=== PATIENT | female | born 1965 | race African-American/Black ===

== ENCOUNTER 2020-10-18 17:14 | Inpatient (IN) ==
[2020-10-18] MEDS ORDERED: 0.9 % Sodium Chloride 500 ML IVC ONE (17:53)
[2020-10-18] MEDS ORDERED: Ondansetron 4 MG/2 ML VIAL IVP ONE (17:53)
[2020-10-18] MEDS ORDERED: Aspirin 81 MG TAB.CHEW PO ONE (17:53)
[2020-10-18] MEDS ORDERED: *HR* LORazepam 2 MG/ML VIAL IVP ONE (17:54)
[2020-10-18] MEDS ORDERED: *HR* FentaNYL (PF) 100 MCG/2 ML VIAL IVP ONE (17:54)
[2020-10-18] MEDS ORDERED: Isovue-370 500 ML BOTTLE IVP ONE (18:01)
[2020-10-18 18:28] LABS: Basophils % 0.8 %; Eosinophils # 0.1 K/mcL (0.0-0.6); Eosinophils % 1.2 %; Hematocrit 39.9 % (35.3-44.9); Hemoglobin 12.9 g/dL (11.5-15.4); Immature Granulocytes % 0.4 % (0-4); Lymphocytes # 1.4 K/mcL (0.6-4.6); Lymphocytes % 29.1 %; Mean Corpuscular HGB Conc 32.3 g/dL (31.6-35.5); Mean Corpuscular Hemoglobin 26.5 pg (28.0-33.3); Mean Corpuscular Volume 81.9 fL (83.0-100.0); Mean Platelet Volume 9.4 fL (9.4-12.4); Monocytes # 0.6 K/mcL (0.0-1.3); Monocytes % 12.8 %; Neutrophils # 2.7 K/mcL (1.6-8.9); Platelet Count 330 K/mcL (140-400); Red Blood Count 4.87 M/mcL (3.82-4.97); Segmented Neutrophils % 55.7 %; White Blood Count 4.8 K/mcL (4.3-11.1)
[2020-10-18 18:39] LABS: INR 1.3; Prothrombin Time 14.6 Seconds (9.4-12.1)
[2020-10-18 18:41] LABS: Activated Partial Thrombo Time 27.4 Seconds (26.0-36.0)
[2020-10-18 18:51] LABS: Alanine Aminotransferase 59 Units/L (7-52); Albumin/Globulin Ratio 1.4 (1.1-2.2); Alkaline Phosphatase 123 Units/L (34-104); Aspartate Amino Transferase 45 Units/L (13-39); BUN/Creatinine Ratio 17 (6-26); Bilirubin,Direct 0.1 mg/dL (0.0-0.2); Bilirubin,Indirect 0.5 mg/dL (0.0-1.0); Bilirubin,Total 0.6 mg/dL (0.3-1.0); Blood Urea Nitrogen 21 mg/dL (6-20); Calcium 9.1 mg/dL (8.6-10.3); Carbon Dioxide 20 mEq/L (23-29); Chloride 108 mEq/L (98-107); Globulin 2.9 g/dL (2.4-3.5); Glucose 111 mg/dL (70-105); Lipase 34 Units/L (11-82); Osmolality,Calculated 290 (280-300); Sodium 138 mEq/L (136-145); Total Protein 6.9 g/dL (6.4-8.9); Troponin I < 0.03 ng/mL (< 0.04); eGFR For African Americans 55 (> 60); eGFR For Non-African Americans 45 (> 60)
[2020-10-18 20:46] LABS: Bacteria,Urine Few per hpf (None-Few); Bilirubin,Urine Negative (Negative); Blood,Urine Negative (Negative); Clarity,Urine Clear (Clear); Color,Urine Light-Yellow (Yellow); Glucose,Urine (UA) Normal (Normal); Ketones,Urine Negative (Negative); Leukocyte Esterase,Urine Trace (Negative); Mucus,Urine Few per lpf (None-Few); Nitrite,Urine Negative (Negative); PH,Urine 5.5 pH Units (5.0-8.0); Protein,Urine Negative (Neg-Trace); RBC,Urine 0-3 per hpf (0-3); Squamous Epithelial Cell,Urine Few per hpf (None-Few); Urobilinogen,Urine Normal (Normal); WBC,Urine 0-3 per hpf (0-3)
[2020-10-18 21:06] LABS: Amphetamine Screen,Urine Positive ng/mL (Cutoff=1000); Barbiturate Screen,Urine Negative ng/mL (Cutoff=200); Benzodiazepines Screen,Urine Negative ng/mL (Cutoff=200); Cannabinoid Screen,Urine Negative ng/mL (Cutoff = 50); Cocaine Screen,Urine Negative ng/mL (Cutoff= 300); Opiate Screen,Urine Negative ng/mL (Cutoff=300); Phencyclidine Screen,Urine Negative ng/mL (Cutoff=25)
[2020-10-19] MEDS ORDERED: Perflutren Lipid Microsphere 1.3 ML in 0.9 % Sodium Chloride 8.7 ML IVP PRN (00:40)
[2020-10-19] MEDS ORDERED: Nitroglycerin 0.4 MG TAB.SUBL SL PRN (00:41)
[2020-10-19] MEDS ORDERED: Morphine Sulfate 2 MG/ML SYRINGE IVP PRN (00:47)
[2020-10-19] MEDS ORDERED: Naloxone 0.4 MG/ML INJ IVP PRN (00:49)
[2020-10-19] MEDS ORDERED: Dextrose Gel 15 GM/37.5 ML TUBE PO PRN ×2 (00:55)
[2020-10-19] MEDS ORDERED: D5% in Water 1,000 ML IVC PRN (00:55)
[2020-10-19] MEDS ORDERED: *HR* Dextrose 50 % in Water (Vial) 50 ML VIAL IVP PRN (00:55)
[2020-10-19] MEDS: *HR* LORazepam 2 MG/ML VIAL IVP PRN ×2 (02:41→12:02)
[2020-10-19 04:57] LABS: Hematocrit 37.9 % (35.3-44.9); Hemoglobin 12.4 g/dL (11.5-15.4); Mean Corpuscular HGB Conc 32.7 g/dL (31.6-35.5); Mean Corpuscular Volume 82.6 fL (83.0-100.0); Mean Platelet Volume 9.3 fL (9.4-12.4); Platelet Count 293 K/mcL (140-400); Red Blood Count 4.59 M/mcL (3.82-4.97); White Blood Count 5.4 K/mcL (4.3-11.1)
[2020-10-19 05:06] LABS: Estimated Average Glucose 163 mg/dl; Hemoglobin A1C 7.3 %
[2020-10-19 05:19] LABS: Calcium 8.6 mg/dL (8.6-10.3); Potassium 4.1 mEq/L (3.5-5.1)
[2020-10-19] MEDS: *HR* Heparin 5,000 UNIT/ML VIAL SQ SCH ×2 (05:22→18:42)
[2020-10-19 05:55] LABS: Hepatitis B Surface Antigen Nonreactive (Nonreactive)
[2020-10-19] MEDS ORDERED: Regadenoson 0.4 MG/5 ML SYRINGE IVP ONE (06:12)
[2020-10-19 06:24] LABS: Hepatitis C Virus Antibody Nonreactive (Nonreactive)
[2020-10-19 06:25] LABS: Hepatitis B Core IgM Nonreactive (Nonreactive)
[2020-10-19] MEDS ORDERED: Furosemide 20 MG TABLET PO SCH (09:00)
[2020-10-19] MEDS: Aspirin Enteric Coated 81 MG Tablet PO SCH (09:35)
[2020-10-19 13:21] LABS: Hepatitis A Antibody IgM Nonreactive (Nonreactive)
[2020-10-19] MEDS: Furosemide 20 MG/2 ML VIAL IVP SCH (18:42)
[2020-10-20] MEDS: *HR* Heparin 5,000 UNIT/ML VIAL SQ SCH ×2 (05:35→18:34)
[2020-10-20 06:30] LABS: Basophils % 0.8 %; Eosinophils # 0.2 K/mcL (0.0-0.6); Eosinophils % 3.1 %; Hematocrit 38.2 % (35.3-44.9); Hemoglobin 12.5 g/dL (11.5-15.4); Immature Granulocytes % 0.4 % (0-4); Lymphocytes # 1.9 K/mcL (0.6-4.6); Lymphocytes % 37.1 %; Mean Corpuscular HGB Conc 32.7 g/dL (31.6-35.5); Mean Corpuscular Hemoglobin 26.8 pg (28.0-33.3); Mean Platelet Volume 9.8 fL (9.4-12.4); Monocytes # 0.5 K/mcL (0.0-1.3); Monocytes % 10.6 %; Neutrophils # 2.5 K/mcL (1.6-8.9); Platelet Count 291 K/mcL (140-400); Red Blood Count 4.66 M/mcL (3.82-4.97); White Blood Count 5.1 K/mcL (4.3-11.1)
[2020-10-20 06:46] LABS: Albumin 3.5 g/dL (3.5-5.7); Albumin/Globulin Ratio 1.4 (1.1-2.2); Bilirubin,Total 0.4 mg/dL (0.3-1.0); Calcium 8.8 mg/dL (8.6-10.3); Globulin 2.5 g/dL (2.4-3.5); Potassium 4.3 mEq/L (3.5-5.1)
[2020-10-20] MEDS: Furosemide 20 MG/2 ML VIAL IVP SCH (11:20)
[2020-10-20] MEDS: Aspirin Enteric Coated 81 MG Tablet PO SCH (11:20)
[2020-10-21] MEDS ORDERED: *HR* LORazepam 2 MG/ML VIAL IVP ONE ×2 (03:04→21:30)
[2020-10-21] MEDS: *HR* Heparin 5,000 UNIT/ML VIAL SQ SCH ×2 (03:15→18:23)
[2020-10-21] MEDS: Nicotine 14 MG PATCH.TD24 TD SCH (03:33)
[2020-10-21 04:28] LABS: Basophils # 0.1 K/mcL (0.0-0.2); Eosinophils # 0.2 K/mcL (0.0-0.6); Eosinophils % 3.5 %; Hematocrit 41.2 % (35.3-44.9); Immature Granulocytes % 0.4 % (0-4); Lymphocytes # 1.6 K/mcL (0.6-4.6); Lymphocytes % 31.3 %; Mean Corpuscular HGB Conc 31.6 g/dL (31.6-35.5); Mean Corpuscular Hemoglobin 26.5 pg (28.0-33.3); Mean Corpuscular Volume 84.1 fL (83.0-100.0); Mean Platelet Volume 9.9 fL (9.4-12.4); Monocytes # 0.6 K/mcL (0.0-1.3); Monocytes % 12.1 %; Neutrophils # 2.6 K/mcL (1.6-8.9); Platelet Count 339 K/mcL (140-400); Segmented Neutrophils % 51.7 %; White Blood Count 5.1 K/mcL (4.3-11.1)
[2020-10-21 04:37] LABS: BUN/Creatinine Ratio 28 (6-26); Blood Urea Nitrogen 30 mg/dL (6-20); Calcium 9.1 mg/dL (8.6-10.3); Carbon Dioxide 22 mEq/L (23-29); Chloride 102 mEq/L (98-107); Glucose 100 mg/dL (70-105); Osmolality,Calculated 288 (280-300); Potassium 4.8 mEq/L (3.5-5.1); Sodium 136 mEq/L (136-145); eGFR For African Americans > 60 (> 60); eGFR For Non-African Americans 53 (> 60)
[2020-10-21] MEDS: Furosemide 40 MG TABLET PO SCH (12:37)
[2020-10-21] MEDS: Aspirin Enteric Coated 81 MG Tablet PO SCH (12:37)
[2020-10-22] MEDS ORDERED: SUMAtriptan succinate 25 MG TABLET PO ONE (02:28)
[2020-10-22 02:39] LABS: Basophils % 0.9 %; Eosinophils # 0.2 K/mcL (0.0-0.6); Eosinophils % 3.8 %; Hematocrit 42.7 % (35.3-44.9); Hemoglobin 13.9 g/dL (11.5-15.4); Immature Granulocytes % 0.2 % (0-4); Lymphocytes # 1.7 K/mcL (0.6-4.6); Lymphocytes % 36.7 %; Mean Corpuscular HGB Conc 32.6 g/dL (31.6-35.5); Mean Corpuscular Hemoglobin 26.8 pg (28.0-33.3); Mean Corpuscular Volume 82.3 fL (83.0-100.0); Mean Platelet Volume 9.6 fL (9.4-12.4); Monocytes # 0.6 K/mcL (0.0-1.3); Monocytes % 12.7 %; Neutrophils # 2.1 K/mcL (1.6-8.9); Platelet Count 363 K/mcL (140-400); Red Blood Count 5.19 M/mcL (3.82-4.97); Red Cell Distribution Width 14.6 % (11.5-14.5); Segmented Neutrophils % 45.7 %; White Blood Count 4.5 K/mcL (4.3-11.1)
[2020-10-22 02:57] LABS: BUN/Creatinine Ratio 30 (6-26); Blood Urea Nitrogen 31 mg/dL (6-20); Calcium 9.2 mg/dL (8.6-10.3); Carbon Dioxide 22 mEq/L (23-29); Chloride 103 mEq/L (98-107); Glucose 120 mg/dL (70-105); Osmolality,Calculated 288 (280-300); Potassium 4.2 mEq/L (3.5-5.1); Sodium 135 mEq/L (136-145); eGFR For African Americans > 60 (> 60); eGFR For Non-African Americans 55 (> 60)
[2020-10-22] MEDS: Nicotine 14 MG PATCH.TD24 TD SCH (03:08)
[2020-10-22] MEDS: *HR* Heparin 5,000 UNIT/ML VIAL SQ SCH ×3 (03:10→15:54)
[2020-10-22] MEDS: Furosemide 40 MG TABLET PO SCH (09:09)
[2020-10-22] MEDS: Aspirin Enteric Coated 81 MG Tablet PO SCH (09:09)
[2020-10-22] MEDS ORDERED: Gabapentin 100 MG CAPSULE PO SCH (15:00)
[2020-10-23 02:28] LABS: Hematocrit 45.1 % (35.3-44.9); Hemoglobin 14.9 g/dL (11.5-15.4); Mean Corpuscular Volume 81.7 fL (83.0-100.0); Mean Platelet Volume 9.2 fL (9.4-12.4); Platelet Count 387 K/mcL (140-400); Red Blood Count 5.52 M/mcL (3.82-4.97); Red Cell Distribution Width 14.9 % (11.5-14.5); White Blood Count 5.1 K/mcL (4.3-11.1)
[2020-10-23 02:47] LABS: BUN/Creatinine Ratio 33 (6-26); Blood Urea Nitrogen 35 mg/dL (6-20); Calcium 9.4 mg/dL (8.6-10.3); Carbon Dioxide 20 mEq/L (23-29); Chloride 102 mEq/L (98-107); Glucose 128 mg/dL (70-105); Osmolality,Calculated 288 (280-300); Potassium 4.3 mEq/L (3.5-5.1); Sodium 134 mEq/L (136-145); eGFR For African Americans > 60 (> 60); eGFR For Non-African Americans 53 (> 60)
[2020-10-23] MEDS: Nicotine 14 MG PATCH.TD24 TD SCH (03:14)
[2020-10-23] MEDS ORDERED: *HR* LORazepam 2 MG/ML VIAL IVP ONE ×2 (03:38→23:28)
[2020-10-23] MEDS: *HR* Heparin 5,000 UNIT/ML VIAL SQ SCH ×2 (05:42→17:39)
[2020-10-23] MEDS ORDERED: Gabapentin 300 MG CAPSULE PO ONE ×2 (05:49→22:31)
[2020-10-23] MEDS: Furosemide 40 MG TABLET PO SCH (08:30)
[2020-10-23] MEDS: Aspirin Enteric Coated 81 MG Tablet PO SCH (09:13)
[2020-10-23] MEDS: Fluticasone Propionate Nasal 50 MCG/SPRAY BOTTLE NS SCH ×2 (14:48→17:39)
[2020-10-24] MEDS: Nicotine 14 MG PATCH.TD24 TD SCH (02:49)
[2020-10-24] MEDS: *HR* Heparin 5,000 UNIT/ML VIAL SQ SCH ×2 (05:29→18:14)
[2020-10-24 06:20] LABS: Basophils # 0.1 K/mcL (0.0-0.2); Basophils % 0.9 %; Eosinophils # 0.2 K/mcL (0.0-0.6); Eosinophils % 3.1 %; Hematocrit 43.4 % (35.3-44.9); Hemoglobin 13.6 g/dL (11.5-15.4); Immature Granulocytes % 0.7 % (0-4); Lymphocytes % 29.7 %; Mean Corpuscular HGB Conc 31.3 g/dL (31.6-35.5); Mean Corpuscular Hemoglobin 26.1 pg (28.0-33.3); Mean Corpuscular Volume 83.3 fL (83.0-100.0); Mean Platelet Volume 9.3 fL (9.4-12.4); Monocytes # 1.1 K/mcL (0.0-1.3); Monocytes % 15.7 %; Neutrophils # 3.4 K/mcL (1.6-8.9); Platelet Count 356 K/mcL (140-400); Red Blood Count 5.21 M/mcL (3.82-4.97); Segmented Neutrophils % 49.9 %; White Blood Count 6.9 K/mcL (4.3-11.1)
[2020-10-24 06:40] LABS: BUN/Creatinine Ratio 30 (6-26); Blood Urea Nitrogen 30 mg/dL (6-20); Calcium 9.5 mg/dL (8.6-10.3); Carbon Dioxide 22 mEq/L (23-29); Chloride 104 mEq/L (98-107); Glucose 101 mg/dL (70-105); Osmolality,Calculated 284 (280-300); Potassium 4.6 mEq/L (3.5-5.1); Sodium 134 mEq/L (136-145); eGFR For African Americans > 60 (> 60); eGFR For Non-African Americans 57 (> 60)
[2020-10-24] MEDS: Aspirin Enteric Coated 81 MG Tablet PO SCH (09:56)
[2020-10-24] MEDS: Fluticasone Propionate Nasal 50 MCG/SPRAY BOTTLE NS SCH (09:56)
[2020-10-24] MEDS: Furosemide 40 MG TABLET PO SCH (09:56)
[2020-10-24] MEDS ORDERED: *HR* LORazepam 0.5 MG TABLET PO ONE (15:45)
[2020-10-24] MEDS ORDERED: hydrOXYzine pamoate 25 MG CAPSULE PO ONE (15:49)
[2020-10-24] MEDS: Benzonatate 100 MG CAPSULE PO PRN (16:23)
[2020-10-24] MEDS ORDERED: Gabapentin 300 MG CAPSULE PO ONE (22:25)
[2020-10-25] MEDS: Nicotine 14 MG PATCH.TD24 TD SCH (03:54)
[2020-10-25] MEDS: *HR* Heparin 5,000 UNIT/ML VIAL SQ SCH ×2 (05:10→16:41)
[2020-10-25 06:36] LABS: Basophils # 0.1 K/mcL (0.0-0.2); Basophils % 1.2 %; Eosinophils # 0.2 K/mcL (0.0-0.6); Eosinophils % 4.2 %; Hematocrit 50.1 % (35.3-44.9); Lymphocytes # 1.7 K/mcL (0.6-4.6); Lymphocytes % 29.2 %; Mean Corpuscular HGB Conc 31.1 g/dL (31.6-35.5); Mean Corpuscular Hemoglobin 26.4 pg (28.0-33.3); Mean Corpuscular Volume 84.6 fL (83.0-100.0); Mean Platelet Volume 8.9 fL (9.4-12.4); Monocytes # 0.9 K/mcL (0.0-1.3); Monocytes % 15.3 %; Neutrophils # 2.8 K/mcL (1.6-8.9); Platelet Count 406 K/mcL (140-400); Red Blood Count 5.92 M/mcL (3.82-4.97); Red Cell Distribution Width 15.3 % (11.5-14.5); Segmented Neutrophils % 49.1 %; White Blood Count 5.8 K/mcL (4.3-11.1)
[2020-10-25 06:37] LABS: Hemoglobin 15.6 g/dL (11.5-15.4)
[2020-10-25 06:52] LABS: BUN/Creatinine Ratio 25 (6-26); Blood Urea Nitrogen 28 mg/dL (6-20); Calcium 10.1 mg/dL (8.6-10.3); Carbon Dioxide 29 mEq/L (23-29); Chloride 100 mEq/L (98-107); Glucose 98 mg/dL (70-105); Osmolality,Calculated 289 (280-300); Potassium 4.6 mEq/L (3.5-5.1); Sodium 137 mEq/L (136-145); eGFR For African Americans > 60 (> 60); eGFR For Non-African Americans 50 (> 60)
[2020-10-25] MEDS: Aspirin Enteric Coated 81 MG Tablet PO SCH (07:37)
[2020-10-25] MEDS: Furosemide 40 MG TABLET PO SCH (07:37)
[2020-10-25] MEDS: Fluticasone Propionate Nasal 50 MCG/SPRAY BOTTLE NS SCH (07:42)
[2020-10-25] MEDS: Benzonatate 100 MG CAPSULE PO PRN (14:08)
[2020-10-25] MEDS: lisinopriL 5 MG TABLET PO SCH (17:58)
[2020-10-25] MEDS ORDERED: Gabapentin 100 MG CAPSULE PO SCH (21:00)
[2020-10-25] MEDS: Ondansetron 4 MG/2 ML VIAL IVP PRN (22:32)
[2020-10-25] MEDS ORDERED: *HR* Promethazine 25 MG/ML VIAL IM ONE (23:32)
[2020-10-26] MEDS: Nicotine 14 MG PATCH.TD24 TD SCH (02:33)
[2020-10-26] MEDS: *HR* Heparin 5,000 UNIT/ML VIAL SQ SCH ×2 (05:25→18:04)
[2020-10-26] MEDS: Aspirin Enteric Coated 81 MG Tablet PO SCH (07:22)
[2020-10-26] MEDS: Fluticasone Propionate Nasal 50 MCG/SPRAY BOTTLE NS SCH (07:22)
[2020-10-26] MEDS: Furosemide 40 MG TABLET PO SCH (07:22)
[2020-10-26] MEDS ORDERED: Bisoprolol/HCTZ 5/6.25 TABLET PO SCH (09:00)
[2020-10-26] MEDS: Ondansetron 4 MG/2 ML VIAL IVP PRN (15:16)
[2020-10-26 16:06] VITALS: BP 135/84
[2020-10-26] MEDS: lisinopriL 5 MG TABLET PO SCH (18:03)
== END 2020-10-26 20:12 | disposition home or self-care (01) | DRG 194 ==
LOC: CDU 17:14 → EMEROOARM 17:14 → SUATTDRO 22:31 → CDU 23:09 → 3BNU 10-20 16:22
PROVIDERS: ADMIT Student in an Organized Health Care Education/Training Program; ATTEND Student in an Organized Health Care Education/Training Program